=== PATIENT | female | born 1955 ===

== ENCOUNTER 2019-02-06 08:48 | Outpatient (CLI) | payer OTHER ==
[~2019-02-06] VITALS: Ht 162.6 cm; Wt 91.6 kg
[2019-02-06] MEDS ORDERED: MUCINEX600 MG PO (10:42)
[2019-02-06] MEDS ORDERED: LIPO-FLAVONOID1 EACH PO (10:43)
== END 2019-02-06 12:30 | disposition home or self-care (01) ==
LOC: OFIC 805 08:48
DX: H93.13 Tinnitus, bilateral (principal); H93.93 Unspecified disorder of ear, bilateral; H91.8X3 Other specified hearing loss, bilateral

== ENCOUNTER 2019-07-03 11:28 | Outpatient (CLI) | payer OTHER ==
[~2019-07-03] VITALS: Ht 152.4 cm; Wt 90.7 kg
[~2019-07-03 11:28] MED LIST: LIPO-FLAVONOID1 EACH PO; MUCINEX600 MG PO
== END 2019-07-03 12:17 | disposition home or self-care (01) ==
LOC: OFIC 805 11:28
DX: H93.13 Tinnitus, bilateral (principal); R42 Dizziness and giddiness; H91.8X3 Other specified hearing loss, bilateral; H93.8X3 Other specified disorders of ear, bilateral

== ENCOUNTER 2019-07-11 13:19 | Outpatient (CLI) | payer OTHER ==
[~2019-07-11] VITALS: Ht 152.4 cm; Wt 91.6 kg
== END 2019-07-11 16:31 | disposition home or self-care (01) ==
LOC: OFIC 805 13:19
DX: H93.90 Unspecified disorder of ear, unspecified ear (principal); H93.13 Tinnitus, bilateral; H91.8X3 Other specified hearing loss, bilateral; R42 Dizziness and giddiness; M62.838 Other muscle spasm